=== PATIENT | male | born 1955 | race Caucasian/White ===

== ENCOUNTER 2016-08-10 08:55 | Emergency (ER) | payer MEDICAID ==
--- NOTE | 2016-08-10 09:28 | ED Physician Chart ---
Chief Complaint/HPI - Patient Information Date Seen:: 08/10/16 Time Seen:: 09:22 Chief Complaint:: abd p History of Present Illness:: pt w pain in low mid abd since last nt. has nad n/v x2 of nonbloody emesis. no fever. no constipation. pt has long standing hx of poor ctrl of bowel continence. says when he pees he often will poo involutarily. this is not new. pt low back pain is acting up also. he has had back sx 3x inpast for hernited disk. no weak/numb in legs. pt was on high dose MS cont and Dilaudid last time I saw him and had run out. today he says he is not on either of these meds since june and has to see a new dr to get these rxs filled so he has none at this time...he is on gabapentin and soma... no urinary changes Allergies:: Allergies Allergy/AdvReac Type Severity Reaction Status Date / Time No Known Allergies Allergy Verified 08/10/16 09:04 Vitals:: Vital Signs - 8 hr 08/10/16 08:55 Temp 97.8 F HR 87 RR 16 BP 147/85 O2 Sat % 97 Historian:: Patient Review of Systems - Review of Systems General/Constitutional: No fever, No chills, No weight loss, No weakness, No diaphoresis, No edema, No loss of appetite Skin: No skin lesions, No rash, No bruising Head: No headache, No light-headedness Eyes: No loss of vision, No pain, No diplopia ENT: No earache, No nasal drainage, No sore throat, No tinnitus Neck: No neck pain, No swelling, No thyromegaly, No stiffness, No mass noted Cardio Vascular: No chest pain, No palpitations, No PND, No orthopnea, No edema Pulmonary: No SOB, No cough, No sputum, No wheezing GI: Nausea, Vomiting, No diarrhea, Pain, No melena, No hematochezia, No constipation, No hematemesis G/U: No dysuria, No frequency, No hematuria Musculoskeletal: No bone or joint pain, No back pain, No muscle pain Endocrine: No polyuria, No polydipsia Psychiatric: No prior psych history, No depression, No anxiety, No suicidal ideation Hematopoietic: No bruising, No lymphadenopathy Allergic/Immuno: No urticaria, No angioedema Neurological: No syncope, No focal symptoms, No weakness, No paresthesia, No headache, No seizure, No dizziness, No confusion, No vertigo Past Medical History - Past Medical History Past Medical History: Other (colon ca sx yrs ago. (is still on chemo)) Social History: Non Smoker, No Alcohol Medication: Reviewed Family Medical History - Family Member Father History Unknown: Yes Mother History Unknown: Yes Ethnicity: Non- Living Status: Hx Family Congestive Heart Failure: Yes Hx Family Hypertension: Yes Physical Exam - Physical Examination General/Constitutional: Awake, Well-developed, well-nourished, Alert, No distress, GCS 15, Non-toxic appearing, Ambulatory Other Gen/Cons comments:: pt appears comfortable and in no distress. nrml str/sens in b legs. Head: Atraumatic Eyes: Lids, conjuctiva normal, PERRL, EOMI Skin: Nl inspection, No rash, No skin lesions, No ecchymosis, Well hydrated, No lymphadenopathy ENMT: External ears, nose nl, Nasal exam nl, Lips, teeth, gums nl Neck: Nontender, Full ROM w/o pain, No JVD, No nuchal rigidity, No bruit, No mass, No stridor Respiratory: Nl effort/Exclusion, Clear to Auscultation, No Wheeze/Rhonchi/Rales Cardio Vascular: RRR, No murmur, gallop, rubs, NL S1 S2 GI: No organomegaly, No hernia, Normal BS's, Nondistended, No mass/bruits, No McBurney tenderness Other GI comments:: abd seems nontndr but pt c/o pain in low mid abd. pos nabs. no rebound. large scar down central abd vertically. scar vertically down low back w vaguely tndr at l4/5/s1 region w no acute deformity. ok rom. : No CVA tenderness Extremities: No tenderness or effusion, Full ROM, normal strength in all extremities, No edema, Normal digits & nails Neuro/Psych: Alert/oriented, DTR's symmetric, Normal sensory exam, Normal motor strength, Judgement/insight normal, Mood normal, Normal gait, No focal deficits Misc: normal gait, Normal back, No paraspinal tenderness Labs/Radiology/EKG Results - Lab Results Results: Laboratory Tests 08/10/16 08/10/16 08/10/16 09:13 09:13 09:35 WBC 4.8 D RBC 4.35 Hgb 14.6 Hct 42.5 MCV 97.6 MCH 33.6 H MCHC Differential 34.4 RDW 12.3 Plt Count 196 MPV 6.6 Neutrophils % 62.7 Lymphocytes % 26.0 Monocytes % 9.6 Eosinophils % 1.3 Basophils % 0.4 Sodium Potassium Chloride Carbon Dioxide Anion Gap BUN Creatinine Est GFR ( Amer) Est GFR (Non-Af Amer) BUN/Creatinine Ratio Glucose Whole Bld Lactic Acid Calcium Total Bilirubin AST ALT Alkaline Phosphatase Total Protein Albumin Globulin Albumin/Globulin Ratio Lipase Urine Source CLEAN C Urine Color YELLOW Urine Clarity CLEAR Urine pH 6.0 Ur Specific [place] 1.020 Urine Protein NEGATIVE Urine Glucose (UA) NEGATIVE Urine Ketones NEGATIVE Urine Blood NEGATIVE Urine Nitrate NEGATIVE Urine Bilirubin NEGATIVE Urine Urobilinogen 0.2 Ur Leukocyte Esterase NEGATIVE Urine Opiates Screen NEGATIVE Ur Barbiturates Screen NEGATIVE Ur Phencyclidine Scrn NEGATIVE Amphetamines Screen NEGATIVE U Methamphetamines Scrn NEGATIVE U Benzodiazepines Scrn NEGATIVE U Cocaine Metab Screen NEGATIVE U Cannabinoids Screen NEGATIVE 08/10/16 08/10/16 09:35 09:35 WBC RBC Hgb Hct MCV MCH MCHC Differential RDW Plt Count MPV Neutrophils % Lymphocytes % Monocytes % Eosinophils % Basophils % Sodium 133 L Potassium 3.8 Chloride 105 Carbon Dioxide 23.7 Anion Gap 8.1 BUN 11 Creatinine 1.2 Est GFR ( Amer) > 60.0 Est GFR (Non-Af Amer) > 60.0 BUN/Creatinine Ratio 9.2 Glucose 110 H Whole Bld Lactic Acid 1.28 Calcium 9.7 Total Bilirubin 0.5 AST 18 ALT 13 Alkaline Phosphatase 63 Total Protein 6.8 Albumin 4.3 Globulin 2.5 Albumin/Globulin Ratio 1.7 Lipase 13 Urine Source Urine Color Urine Clarity Urine pH Ur Specific [place] Urine Protein Urine Glucose (UA) Urine Ketones Urine Blood Urine Nitrate Urine Bilirubin Urine Urobilinogen Ur Leukocyte Esterase Urine Opiates Screen Ur Barbiturates Screen Ur Phencyclidine Scrn Amphetamines Screen U Methamphetamines Scrn U Benzodiazepines Scrn U Cocaine Metab Screen U Cannabinoids Screen - Radiology Results Results: ct abd/p --- nad, prior sx changes ED Septic Shock - . Is Septic Shock (SBP<90, OR Lactate>4 mmol\L) present?: No - <6hrs of presentation: Vital Signs: Vital Signs - 8 hr 08/10/16 08:55 Temp 97.8 F HR 87 RR 16 BP 147/85 O2 Sat % 97 Reassessment (Disposition) - Reassessment Reassessment Condition:: Improved - Diagnosis Diagnosis:: 1 exacerbtion of chronic back pain - Patient Disposition Discharge/Transfer:: Home Condition at Disposition:: Improved ED Discharge Plan - Patient Disposition Admit/Discharge/Transfer: PT DISCHARGED HOME Condition at Disposition: Stable Instructions: Abdominal Pain, [id number] Additional Instructions: Dr. Polanco will see you in his office on Friday. Call his office first thing in the morning to schedule an appointment. Accepting Physician: Leonardo Polanco [Primary Care Provider] - 1-3 Days
[2016-08-10] MEDS ORDERED: Sodium Chloride 0.9% 1,000 ML IV ONE (09:30)
[2016-08-10] MEDS ORDERED: HYDROmorphone 1 mg/mL 1mL Syr IVP STA ×2 (09:32→11:32)
[2016-08-10] MEDS ORDERED: HYDROmorphone 1 mg/mL 1mL Syr ONE ×2 (09:43→11:40)
[2016-08-10 09:51] LABS: % BASOPHILS 0.4 % (0.0-2.0); % EOSINOPHILS 1.3 % (0.0-5.0); % MONOCYTES 9.6 % (2.0-10.0); % NEUTROPHILS 62.7 % (40.0-80.0); HEMATOCRIT 42.5 % (39.0-49.0); HEMOGLOBIN 14.6 gm/dL (13.2-17.3); MEAN CELL VOLUME 97.6 fl (80-99); MEAN CORPUSCULAR HEMOGLOBIN 33.6 pg (26.0-30.0); MEAN CORPUSCULAR HGB CONC 34.4 pg (28.0-36.0); MEAN PLATELET VOLUME 6.6 fl; PLATELET COUNT 196 Th/cmm (150-400); RED BLOOD COUNT 4.35 Mil/cmm (4.30-5.70); RED CELL DISTRIBUTION WIDTH 12.3 % (11.5-20.0); WHITE BLOOD COUNT 4.8 Th/cmm (4.8-10.8)
[2016-08-10 10:03] LABS: ALB/GLOB RATIO 1.7 (1.0-1.8); ALKALINE PHOSPHATASE 63 U/L (34-104); ANION GAP 8.1 (7.0-16.0); BILIRUBIN,TOTAL 0.5 mg/dL (0.3-1.0); BUN - UREA NITROGEN 11 mg/dL (7-25); BUN/CREATININE RATIO 9.2; CALCIUM SERUM 9.7 mg/dL (8.6-10.3); CARBON DIOXIDE 23.7 mEq/L (21.0-31.0); CHLORIDE 105 mEq/L (98-107); CREATININE - SERUM 1.2 mg/dL (0.7-1.3); GLUCOSE 110 mg/dL (70-105); LIPASE 13 U/L (11-82); POTASSIUM SERUM 3.8 mEq/L (3.5-5.1); SGOT 18 U/L (13-39); SGPT/ALT 13 U/L (7-52); SODIUM SERUM 133 mEq/L (136-145)
[2016-08-10 10:05] LABS: URINE BILIRUBIN NEGATIVE (NEGATIVE); URINE BLOOD NEGATIVE (NEGATIVE); URINE COLOR YELLOW; URINE GLUCOSE (UA) NEGATIVE (NEGATIVE); URINE KETONE NEGATIVE (NEGATIVE)
[2016-08-10 10:06] LABS: URINE PROTEIN NEGATIVE (NEGATIVE); URINE UROBILINOGEN 0.2 E.U./dL (0.2 - 1.0)
[2016-08-10 10:32] LABS: AMPHETAMINE URINE NEGATIVE (NEGATIVE); BARBITURATES URINE NEGATIVE (NEGATIVE)
--- NOTE | 2016-08-12 11:12 | Diagnostic Imaging Report ---
CT scan abdomen and pelvis without intravenous contrast HISTORY: Pain Total DLP equals 555 CTDI equals 11.3 Axial sections were obtained from the xiphoid process down to the pubic symphysis. The exam of the liver demonstrates an approximate 1.2 cm cyst within the right lobe. No other significant focal lesions. The spleen appears normal. No focal abnormality seen within the pancreas. The right kidney appears normal. There is an approximate 3 mm calculus within the medullary region of the left kidney. No hydronephrosis. This is unchanged from a prior study of 06/19/2016. Stool-filled large bowel with mild to moderate dilatation to the transverse colon along with surgical changes noted. The remainder of the pelvis demonstrates preservation of normal fat planes. No abnormal soft tissue masses or abnormal fluid collections. Degenerative changes seen to the spine. IMPRESSION: 1. Stool-filled large bowel mild dilatation through the transverse colon region. Surgical changes noted within this area. 2. 3 mm nonobstructing left renal calculus unchanged from a level 3016. 3. No other acute abnormalities
== END 2016-08-10 14:15 | disposition home or self-care (01) ==
LOC: ER 08:55
DX: R10.9 Unspecified abdominal pain (principal)
CPT/HCPCS: 99285; 96374; 96375; 96376; 74176; 36415; 83605; 80300; 85025; 81003; 83690; 80053; J2405; J1170; J1200; J7030

== ENCOUNTER 2016-09-16 09:02 | Emergency (ER) | payer MEDICAID ==
--- NOTE | 2016-09-16 09:16 | ED Physician Chart ---
Chief Complaint/HPI - Patient Information Date Seen:: 09/16/16 Time Seen:: 09:05 Chief Complaint:: back pain History of Present Illness:: 61-year-old male with history of chronic back pain takes large amounts of opiates, complains of acute, worsening, constant, aching, severe, 10 out of 10, radiating to the abdomen, low back pain 3 days. Denies any injury, nausea, vomiting, numbness, tingling, urinary incontinence, diarrhea, gross hematuria, gross blood in stool. Allergies:: Allergies Allergy/AdvReac Type Severity Reaction Status Date / Time No Known Allergies Allergy Verified 08/10/16 09:04 Historian:: Patient Review:: Nurse's Note Reviewed Review of Systems - Review of Systems Other: Complete system review otherwise unremarkable except as noted in HPI. Past Medical History - Past Medical History Past Medical History: Other (low back pain) Family History: None Social History: Non Smoker, No Alcohol, No Drug Use, Lives With Parents Surgical History: other Psychiatricy History: None Medication: Reviewed Family Medical History - Family Member Father History Unknown: Yes Ethnicity: Non- Mother History Unknown: Yes Ethnicity: Non- Living Status: Hx Family Congestive Heart Failure: Yes Hx Family Hypertension: Yes Physical Exam - Physical Examination Other:: INITIAL VITAL SIGNS: Reviewed by me GENERAL: Alert and interactive. No acute distress HEAD: Head is normocephalic and atraumatic EYES: EOMI. . No scleral icterus. No conjunctival injection ENT: Moist mucous membranes. NECK: Supple. No masses. Full range of motion RESPIRATORY: No tachypnea. Clear breath sounds bilaterally. No wheezing, rales, or rhonchi CV: Regular rate and rhythm. No murmurs, rubs, or gallops ABDOMEN: Soft, non-distended, non-tender. No guarding. No rebound. No masses. EXTREMITIES: No deformity. No cyanosis. No edema. SKIN: Warm and dry. No obvious rashes. NEUROLOGIC: Alert and oriented. Face is symmetric. Speech is normal. Moves all extremities equally. Motor and sensory distally intact. Labs/Radiology/EKG Results - Radiology Results Results: CT abdomen and pelvis without contrast per radiology Little change from prior exam is August 10, 2016 3 mm laceration left renal calculus Diastasis recti with protuberant contour of the anterior abdomen with peritoneal margin just the skin surface level of the umbilicus Mildly dilated stool filled sigmoid colon and rectum Surgical changes with the left abdomen Surgical degenerative changes stable. Discussed ED Septic Shock - . Is Septic Shock (SBP<90, OR Lactate>4 mmol\L) present?: No Reassessment (Disposition) - Reassessment Reassessment:: The patient's blood pressure was elevated (>120/80) but appears stable without evidence of hypertensive emergency or urgency. The patient was counseled about the risks hypertension urged to pursue outpatient monitoring and therapy within a week with her primary care physician. Patient was researched on the [employer] database. He receives large amounts of opiates and muscle relaxers from multiple providers. He does have one main provider which appears to be providing him with Soma and zolpidem. He has received morphine and hydromorphone from 3 different providers in the last 6 months. I discussed her policy about opioid prescriptions here at this emergency room and that we are not likely to provide prescriptions for chronic pain. He also appears to be in no acute distress and has a benign exam. Patient was given intramuscular Toradol. He was discharged with recommendation to follow-up with PCP in one to 2 days. We gave him return to ER precautions. The patient seemed to understand and agree with the plan. Reassessment Condition:: Improved - Diagnosis Diagnosis:: Low back pain, acute on chronic Elevated blood pressure without the diagnosis of hypertension - Aftercare/Follow up Instructions Aftercare/Follow-Up Instructions:: Counseled pt regarding lab results/diagnosis & need follow up, Refer to Discharge Instructions - Patient Disposition Discharge/Transfer:: Home Condition at Disposition:: Improved ED Discharge Plan - Patient Disposition Admit/Discharge/Transfer: PT DISCHARGED HOME Condition at Disposition: Improved Instructions: Chronic Pain
--- NOTE | 2016-09-16 10:45 | Diagnostic Imaging Report ---
CT scan abdomen and pelvis without intravenous contrast HISTORY: Pain Total DLP equals 544 CTDI equals 10.5 Axial sections were obtained from the xiphoid process down to the pubic symphysis. The exam of the liver demonstrates an approximate 1.2 cm hypodense lesion in the periphery of the right lobe unchanged from a prior exam of 08/10/2016 consistent with a cyst. The spleen appears normal. No focal abnormality seen within the pancreas. The adrenal glands appear normal. The right kidney is unremarkable. Again noted and unchanged is an approximate 3 mm calculus within the medullary region of the left kidney. No hydronephrosis. There is attenuation of the anterior abdominal wall with a convex contour with the peritoneal margin just beneath the skin surface at the level of the umbilicus. Associated diastases recti seen. Surgical changes noted in the left abdomen. The exam of the pelvis demonstrates mildly dilated stool-filled sigmoid colon and rectum. No abnormal masses or abnormal fluid collections are seen. Degenerative and surgical changes seen in the lumbar spine. IMPRESSION: 1. Little change from a prior exam of August 10, 2016 2. 3 mm nonobstructing left renal calculus 3. Diastases recti with a protuberant contour of the anterior abdomen with the peritoneal margin just beneath the skin surface at the level of the umbilicus. 4. Mildly dilated stool-filled sigmoid colon and rectum 5. Surgical changes within the left abdomen 6. Surgical degenerative changes within the spine 7. Stable hepatic cyst
== END 2016-09-16 10:49 | disposition home or self-care (01) ==
LOC: ER 09:02
DX: G89.29 Other chronic pain (principal); M54.5 Low back pain; R03.0 Elevated blood-pressure reading, without diagnosis of hypertension
CPT/HCPCS: 99284; 96372; 74176; J1885; Z7502

== ENCOUNTER 2016-09-17 20:07 | Emergency (ER) | payer MEDICAID ==
--- NOTE | 2016-09-17 20:09 | ED Physician Chart ---
Chief Complaint/HPI - Patient Information Date Seen:: 09/17/16 Time Seen:: 20:09 Chief Complaint:: abdominal pain History of Present Illness:: 61-year-old male with chronic pain syndrome seen last night for similar symptoms , complains of acute, constant, aching, severe, 10/10, nonradiating, umbilical and right sided lower abdominal pain that started last night. Allergies:: Allergies Allergy/AdvReac Type Severity Reaction Status Date / Time No Known Allergies Allergy Verified 08/10/16 09:04 Historian:: Patient Review:: Nurse's Note Reviewed Review of Systems - Review of Systems Other: Complete system review otherwise unremarkable except as noted in HPI. Past Medical History - Past Medical History Past Medical History: Other (chronic pain syndrome) Family History: None Social History: Non Smoker, No Alcohol, No Drug Use, Single Surgical History: None Psychiatricy History: None Medication: Reviewed Family Medical History - Family Member Father History Unknown: Yes Ethnicity: Non- Mother History Unknown: Yes Ethnicity: Non- Living Status: Hx Family Congestive Heart Failure: Yes Hx Family Hypertension: Yes Labs/Radiology/EKG Results - Radiology Results Results: Ultrasound abdomen prelim report per radiology NAD ED Septic Shock - . Is Septic Shock (SBP<90, OR Lactate>4 mmol\L) present?: No Reassessment (Disposition) - Reassessment Reassessment:: The patient's blood pressure was elevated (>120/80) but appears stable without evidence of hypertensive emergency or urgency. The patient was counseled about the risks hypertension urged to pursue outpatient monitoring and therapy within a week with her primary care physician. Patient was here last night for similar symptoms. There is some concern that he is seeking drugs. I did rerun a [facility] report which shows that he takes oral Dilaudid tablets on a regular basis. Typically gets refills from Dr. Brown and Dr. Pink. Also taking Soma and Ambien. Also appears to be taking morphine sulfate. Patient's vital signs would not indicate that he is in any severe pain. His clinical condition is he is ambulating and talking in full sentences without showing any signs of severe pain. We will administer Tylenol here in the ER. Labs were essentially unremarkable. Ultrasound demonstrated no acute abnormalities. Patient discharged. Follow up PCP and pain management in one to 2 days. Gave return to ER precautions. Patient understands and agrees with the plan. Reassessment Condition:: Improved - Diagnosis Diagnosis:: Abdominal pain Chronic pain syndrome Pre-hypertension - Aftercare/Follow up Instructions Aftercare/Follow-Up Instructions:: Counseled pt regarding lab results/diagnosis & need follow up, Refer to Discharge Instructions - Patient Disposition Discharge/Transfer:: Home Time:: 21:25 Condition at Disposition:: Improved ED Discharge Plan - Patient Disposition Admit/Discharge/Transfer: PT DISCHARGED HOME Instructions: Abdominal Pain, Chronic Back Pain
[2016-09-17] MEDS ORDERED: Acetaminophen 500 MG TAB ONE (20:19)
[2016-09-17 20:50] LABS: % BASOPHILS 0.6 % (0.0-2.0); % EOSINOPHILS 0.4 % (0.0-5.0); % LYMPHOCYTES 10.2 % (20.0-50.0); % MONOCYTES 7.4 % (2.0-10.0); % NEUTROPHILS 81.4 % (40.0-80.0); HEMATOCRIT 46.5 % (39.0-49.0); HEMOGLOBIN 15.7 gm/dL (13.2-17.3); MEAN CELL VOLUME 94.2 fl (80-99); MEAN CORPUSCULAR HEMOGLOBIN 31.8 pg (26.0-30.0); MEAN CORPUSCULAR HGB CONC 33.8 pg (28.0-36.0); NEUTROPHILE ABSOLUTE 7.1 Th/cmm (1.8-8.0); PLATELET COUNT 235 Th/cmm (150-400); RED BLOOD COUNT 4.93 Mil/cmm (4.30-5.70)
[2016-09-17 20:52] LABS: WHITE BLOOD COUNT 8.7 Th/cmm (4.8-10.8)
[2016-09-17 21:17] LABS: URINE BILIRUBIN NEGATIVE (NEGATIVE); URINE BLOOD NEGATIVE (NEGATIVE); URINE COLOR YELLOW; URINE GLUCOSE (UA) NEGATIVE (NEGATIVE); URINE KETONE NEGATIVE (NEGATIVE); URINE PH 5.5; URINE PROTEIN NEGATIVE (NEGATIVE); URINE UROBILINOGEN 0.2 E.U./dL (0.2 - 1.0)
[2016-09-17 21:18] LABS: URINE BACTERIA NONE SEEN /hpf (NONE SEEN); URINE EPITHELIAL CELLS NONE SEEN /lpf (FEW); URINE RBC NONE SEEN /hpf (0-5); URINE WBC NONE SEEN /hpf (0-5)
--- NOTE | 2016-09-18 11:19 | Diagnostic Imaging Report ---
Ultrasound abdomen limited History: Abdominal pain Comparison: CT abdomen and pelvis on 09/16/2014. Technique sonography right upper quadrant was performed in multiple planes. Findings: Exam is limited as patient was uncooperative during the exam. The liver demonstrates normal echogenicity and measures 16.5 cm. The liver margins are not well-defined, however, no focal lesions identified. No evidence of gallstones. The gallbladder wall measures 2.7 mm. The common bile duct measures 2.5 mm. Evaluation of the pancreas is limited due to bowel gas. Limited evaluation the right kidney demonstrates no evidence of hydronephrosis or focal lesions. No focal abnormalities identified within the right lower quadrant in the area of pain. IMPRESSION: Limited exam as patient was uncooperative. No evidence of gallstones. No evidence of hydronephrosis of the right kidney. Borderline prominent liver. No focal abnormalities identified in the right lower quadrant. If indicated short-term follow-up CT may also be obtained.
== END 2016-09-17 21:25 | disposition home or self-care (01) ==
LOC: ER 20:07
DX: R10.31 Right lower quadrant pain (principal); G89.4 Chronic pain syndrome
CPT/HCPCS: 36415-UA; 76705-TC; 81001-TC; 83690-TC; 85025-TC; Z7610

== ENCOUNTER 2017-08-17 18:43 | Emergency (ER) | payer MEDICAID ==
--- NOTE | 2017-08-17 19:14 | ED Physician Chart ---
ED Chief Complaint/HPI - Patient Information Date Seen:: 08/17/17 Time Seen:: 19:05 Chief Complaint:: Right groin pain, rectal pain History of Present Illness:: 62 yo male had colorectal cancer which was operated but not removed due to its closeness to the prostate 2 months ago. The patient was awaiting for approval for additional surgery to remove the cancer. The patient did not receive chemo or radiation therapy. Since the operation, the patient had intermittent pain in low abdomen, right groin, and rectal area. The patient took oxycodone 15mg bid which could not be refilled until 08/21/17, dilaudid 8mg bid, soma and gabapentin. Dilaudid was prescribed by oncologist. Oxycodone was prescribed by the surgeon. His PCP prescbribed the rest medications. He ran out medications one week ago. During past one day, the pain became worse without relief. He vomited once but denied any fever. Allergies:: Allergies Allergy/AdvReac Type Severity Reaction Status Date / Time No Known Allergies Allergy Verified 08/17/17 19:03 ED Review of Systems - Review of Systems General/Constitutional: No fever Skin: No skin lesions Head: Headache, Light headed Eyes: No pain ENT: No earache Neck: No neck pain Cardio Vascular: No chest pain Pulmonary: No SOB GI: Vomiting, Pain Musculoskeletal: Back pain ED Past Medical History - Past Medical History Past Medical History: Other (colon cancer) Social History: Non Smoker, No Alcohol, No Drug Use Surgical History: other (laparotomy) Family Medical History - Family Member Father History Unknown: Yes Ethnicity: Non- Mother History Unknown: Yes Ethnicity: Non- Living Status: Hx Family Congestive Heart Failure: Yes Hx Family Hypertension: Yes ED Physical Exam - Physical Examination General/Constitutional: Awake Head: Atraumatic Eyes: PERRL Skin: No skin lesions ENMT: Nasal exam nl Neck: No nuchal rigidity Respiratory: Clear to Auscultation, No Wheeze/Rhonchi/Rales Cardio Vascular: RRR, No murmur, gallop, rubs, NL S1 S2 Other GI comments:: abdominal midline incision wound healed. LLQ colostomy intact. Hypoactive bowel sound Extremities: normal strength in all extremities Neuro/Psych: No focal deficits ED Labs/Radiology/EKG Results - Radiology Results Results: CT abdomen/pelvis: Left renal calculus 3mm no obstruction, constipation, colostomy open ED Assessment - Assessment General Assessment: UTI Colorectal cancer Normocytic anemia Hyponatremia Hypokalemia Urine drug screen positive for Benzodiazepine and THC Assessment/Comments:: CBC, CMP, UA, urine drug screen CT abdomen/pelvis Zofran KCL 40mEq po NS 1L iv bolus Rocephin D/c home Ciprofloxacin 500mg bid x 7 days F/u PCP or return to ER if symptoms worsen ED Septic Shock - . Is Septic Shock (SBP<90, OR Lactate>4 mmol\L) present?: No ED Reassessment (Disposition) - Reassessment Reassessment Condition:: Improved - Patient Disposition Discharge/Transfer:: Home ED Discharge Plan - Patient Disposition Admit/Discharge/Transfer: PT DISCHARGED HOME Condition at Disposition: Improved Prescriptions: Ciprofloxacin [Cipro] 500 mg PO BID #14 tab Instructions: Urinary Tract Infection, [id number] Additional Instructions: Take medication as prescribed. Follow up with your primary care provider tomorrow. Return to ER immediately if symptoms worsen.
[2017-08-17 19:36] LABS: % BASOPHILS 0.3 % (0.0-2.0); % EOSINOPHILS 0.7 % (0.0-5.0); % LYMPHOCYTES 24.9 % (20.0-50.0); % NEUTROPHILS 63.1 % (40.0-80.0); LYMPHOCYTE ABSOLUTE 1.4 Th/cmm (1.5-3.0); MEAN CORPUSCULAR HEMOGLOBIN 26.4 pg (26.0-30.0); MEAN CORPUSCULAR HGB CONC 32.6 pg (28.0-36.0); MEAN PLATELET VOLUME 6.1 fl; MONOCYTE ABSOLUTE 0.6 Th/cmm (0.3-1.0); NEUTROPHILE ABSOLUTE 3.8 Th/cmm (1.8-8.0); RED CELL DISTRIBUTION WIDTH 14.6 % (11.5-20.0)
[2017-08-17] MEDS ORDERED: Morphine Sulfate 2 mg/mL 1mL Syr IVP STA ×2 (19:36→21:40)
[2017-08-17 19:37] LABS: HEMATOCRIT 34.8 % (41.0-60); HEMOGLOBIN 11.3 gm/dL (12-16); PLATELET COUNT 317 Th/cmm (150-400); WHITE BLOOD COUNT 5.8 Th/cmm (4.8-10.8)
[2017-08-17] MEDS ORDERED: Morphine Sulfate 2 mg/mL 1mL Syr ONE ×2 (19:51→21:50)
[2017-08-17 19:52] LABS: URINE MICROSCOPIC INDICATED? YES; URINE SOURCE RANDOM
[2017-08-17 19:53] LABS: ALB/GLOB RATIO 1.9 (1.0-1.8); ALBUMIN 4.6 gm/dL (4.2-5.5); ALKALINE PHOSPHATASE 67 U/L (34-104); ANION GAP 14.3 (7.0-16.0); BILIRUBIN,TOTAL 0.3 mg/dL (0.3-1.0); BUN - UREA NITROGEN 9 mg/dL (7-25); CALCIUM SERUM 9.4 mg/dL (8.6-10.3); CARBON DIOXIDE 23.5 mEq/L (21.0-31.0); CHLORIDE 99 mEq/L (98-107); CREATININE - SERUM 1.1 mg/dL (0.7-1.3); GFR AFRICAN-AMERICAN > 60.0 ml/min (>90); GFR NON AFRICAN-AMERICAN > 60.0 ml/min; GLUCOSE 99 mg/dL (70-105); SGOT 16 U/L (13-39); SGPT/ALT 14 U/L (7-52); SODIUM SERUM 134 mEq/L (136-145)
[2017-08-17 19:57] LABS: URINE BILIRUBIN NEGATIVE (NEGATIVE); URINE BLOOD NEGATIVE (NEGATIVE); URINE GLUCOSE (UA) NEGATIVE (NEGATIVE); URINE KETONE NEGATIVE (NEGATIVE); URINE LEUKOCYTE ESTERASE SMALL (NEGATIVE); URINE NITRATE NEGATIVE (NEGATIVE); URINE PROTEIN NEGATIVE (NEGATIVE); URINE UROBILINOGEN 0.2 E.U./dL (0.2 - 1.0)
[2017-08-17 19:59] LABS: POTASSIUM SERUM 2.8 mEq/L (3.5-5.1); URINE CLARITY CLEAR (CLEAR); URINE COLOR STRAW
[2017-08-17 20:04] LABS: URINE BACTERIA NONE SEEN /hpf (NONE SEEN); URINE EPITHELIAL CELLS NONE SEEN /lpf (FEW); URINE RBC NONE SEEN /hpf (0-5); URINE WBC 0-2 /hpf (0-5)
[2017-08-17] MEDS ORDERED: Sodium Chloride 0.9% 1,000 ML IV ONE (20:11)
[2017-08-17] MEDS ORDERED: Potassium Chloride 20 mEq ER Tab PO ONE ×2 (20:11→20:18)
[2017-08-17 20:30] LABS: AMPHETAMINE URINE NEGATIVE (NEGATIVE); BARBITURATES URINE NEGATIVE (NEGATIVE); BENZODIAZEPINES QUAL URINE POSITIVE (NEGATIVE); COCAINE METABOLITE QUAL URINE NEGATIVE (NEGATIVE); METHADONE URINE NEGATIVE (NEGATIVE); METHAMPHETAMINES QUAL URINE NEGATIVE (NEGATIVE); OPIATES (MORPHINE) QUAL. URINE NEGATIVE (NEGATIVE); PHENCYCLIDINE (PCP) URINE NEGATIVE (NEGATIVE); TRICYCLICS (TCA) QUAL. URINE NEGATIVE (NEGATIVE)
[2017-08-17 20:31] LABS: CANNABINOID THC POSITIVE (NEGATIVE)
[2017-08-17] MEDS ORDERED: cefTRIAXone 1 GM in Sodium Chloride 0.9% 50 ML IV ONE (21:11)
[2017-08-17 23:01] LABS: AMYLASE SERUM 34 U/L (29-103); LIPASE 19 U/L (11-82)
--- NOTE | 2017-08-18 08:07 | Diagnostic Imaging Report ---
Exam: CT examination abdomen pelvis HISTORY: Abdominal pain. Total DLP equals 629 CTDI equals 12.3 Findings: Multiple contiguous thin section of the abdomen pelvis obtained from lower thorax to pubic symphysis without administration intravenous or oral contrast material. The study correlated with the prior exam of the 09/16/2016. The study demonstrates normal aeration of lung parenchyma the bases Again noted small cyst in the right lobe of liver. The spleen is intact. The pancreas is normal. Large amount of fecal content appreciated. The adrenal glands are normal. The gallbladder is intact. The kidneys demonstrate no evidence of obstructive uropathy. Again noted nonobstructing small calculus left kidney. There is evidence for left lower quadrant the ostomy opening. Subcutaneous soft tissue swelling is noted mid abdomen. The urinary bladder is intact. Large amount of fecal content is noted in transverse colon. Multiple metallic sutures are noted in lower abdomen suggestive previous surgery. Degenerative changes lumbar spine appreciated. IMPRESSION: 1. Unchanged appearance of the 3 mm nonsmall nonobstructing left renal calculus 2. Small right lobe of liver cyst. 3. Large amount of fecal content in the transverse: 4. Left lower quadrant colostomy opening 5. Degenerative changes lumbar spine
== END 2017-08-17 23:30 | disposition home or self-care (01) ==
LOC: ER 18:43
DX: R10.31 Right lower quadrant pain (principal); K62.89 Other specified diseases of anus and rectum
CPT/HCPCS: 99285; 96365; 96375; 96376; 93005; 74176; 36415; 82378; 80307; 85025; 81001; 82150; 83690; 80053; J2270 ×2; J2405; J0696; J7030

== ENCOUNTER 2017-09-24 12:26 | Emergency (ER) | payer MEDICAID ==
[2017-09-24] MEDS ORDERED: Morphine Sulfate 2 mg/mL 1mL Syr IM STA (12:58)
--- NOTE | 2017-09-24 13:04 | ED Physician Chart ---
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:: Allergies Allergy/AdvReac Type Severity Reaction Status Date / Time No Known Allergies Allergy Verified 08/17/17 19:03 Vitals:: Vital Signs - 8 hr 09/24/17 12:36 Temp 98.9 F HR 91 RR 18 BP 135/80 O2 Sat % 99 Historian:: Patient Review:: Nurse's Note Reviewed ED Review of Systems - Review of Systems General/Constitutional: No fever, No chills, No weight loss, No weakness, No diaphoresis, No edema, No loss of appetite Skin: No skin lesions, No rash, No bruising Head: No headache, No light-headedness Eyes: No loss of vision, No pain, No diplopia ENT: No earache, No nasal drainage, No sore throat, No tinnitus Neck: No neck pain, No swelling, No thyromegaly, No stiffness, No mass noted Cardio Vascular: No chest pain, No palpitations, No PND, No orthopnea, No edema Pulmonary: No SOB, No cough, No sputum, No wheezing GI: No nausea, No vomiting, No diarrhea, No pain, No melena, No hematochezia, No constipation, No hematemesis G/U: No dysuria, No frequency, No hematuria, No nacturia Musculoskeletal: Bone or joint pain, Back pain, Muscle pain Endocrine: No polyuria, No polydipsia Psychiatric: No prior psych history, No depression, No anxiety, No suicidal ideation, No homicidal ideation, No auditory hallucination, No visual hallucination Hematopoietic: No bruising, No lymphadenopathy Allergic/Immuno: No urticaria, No angioedema Neurological: No syncope, No focal symptoms, No weakness, No paresthesia, No headache, No seizure, No dizziness, No confusion, No vertigo ED Past Medical History - Past Medical History Obtainable: Yes Past Medical History: Other (Colon Cancer) Family History: Cancer Social History: Non Smoker, No Alcohol, No Drug Use, Single Surgical History: other (Colostomy) Psychiatricy History: None Medication: Reviewed Family Medical History - Family Member Father History Unknown: Yes Ethnicity: Non- Mother History Unknown: Yes Ethnicity: Non- Living Status: Hx Family Cancer: No Hx Family Coronary Artery Disease: No Hx Family Congestive Heart Failure: No Hx Family Hypertension: No Hx Family Dementia: No Hx Family AIDS: No Hx Family HIV: No Hx Family COPD: No Hx Family Hepatitis: No Hx Family Psychiatric Problems: No ED Physical Exam - Physical Examination General/Constitutional: Awake, Well-developed, well-nourished, Alert, No distress, GCS 15, Non-toxic appearing, Ambulatory Head: Atraumatic Eyes: Lids, conjuctiva normal, PERRL, EOMI Skin: Nl inspection, No rash, No skin lesions, No ecchymosis, Well hydrated, No lymphadenopathy ENMT: External ears, nose nl, TM canals nl, Nasal exam nl, Lips, teeth, gums nl , Oropharynx nl, Tonsils nl Neck: Nontender, Full ROM w/o pain, No JVD, No nuchal rigidity, No bruit, No mass, No stridor Other Neck comments:: supple; no meningeal signs; no cervical tenderness; no bruits Respiratory: Nl effort/Exclusion, Clear to Auscultation, No Wheeze/Rhonchi/Rales Cardio Vascular: RRR, No murmur, gallop, rubs, NL S1 S2, Carotid/Femoral/Distal pulses equal bilaterally GI: No tenderness/rebounding/guarding, No organomegaly, No hernia, Normal BS's, Nondistended, No mass/bruits, No McBurney tenderness, Rectum exam nl Other GI comments:: no pulsatile masses; + Colostomy Bag/Site; no tenderness; no bleeding : No CVA tenderness Extremities: No tenderness or effusion, Full ROM, normal strength in all extremities, No edema, Normal digits & nails Neuro/Psych: Alert/oriented, DTR's symmetric, Normal sensory exam, Normal motor strength, Judgement/insight normal, Mood normal, Normal gait, No focal deficits Misc: Normal back, No paraspinal tenderness ED Septic Shock - . Is Septic Shock (SBP<90, OR Lactate>4 mmol\L) present?: No - <6hrs of presentation: Vital Signs: Vital Signs - 8 hr 09/24/17 12:36 Temp 98.9 F HR 91 RR 18 BP 135/80 O2 Sat % 99 ED Reassessment (Disposition) - Reassessment Reassessment:: pt tolerated po fluids well in ER; pt is asymptomatic upon discharge Reassessment Condition:: Improved - Diagnosis Diagnosis:: L-S Strain; Colon Cancer; Sprains and Strains; Back Pain; S/P Colon CA Surgery; Abdominal Pain-resolved; MS Back Pain - Aftercare/Follow up Instructions Aftercare/Follow-Up Instructions:: Counseled pt regarding lab results/diagnosis & need follow up, Refer to Discharge Instructions, Counseled pt & family regarding lab results/diagnosis & need follow up - Patient Disposition Discharge/Transfer:: Home Condition at Disposition:: Stable, Improved (RTER prn if existing s/s reoccur and/or get worse and/or any other new s/s occur; ACIs given for all above Dx; Refer to GI Specialist/Oncologist/Dictating Machine Typist/Spinal Specialist CHRISTIANO; F/U with PMD in one day or prn; RTER prn if concerned) ED Discharge Plan - Patient Disposition Admit/Discharge/Transfer: PT DISCHARGED HOME Condition at Disposition: Stable Instructions: Abdominal Pain
[2017-09-24] MEDS ORDERED: Morphine Sulfate 2 mg/mL 1mL Syr ONE (13:05)
== END 2017-09-24 14:06 | disposition home or self-care (01) ==
LOC: ER 12:26
DX: S33.9XXA Sprain of unspecified parts of lumbar spine and pelvis, initial encounter (principal); X58.XXXA Exposure to other specified factors, initial encounter; Y93.89 Activity, other specified; Y92.89 Other specified places as the place of occurrence of the external cause; Y99.8 Other external cause status; Z85.038 Personal history of other malignant neoplasm of large intestine
CPT/HCPCS: 99283; 96372; J2270; Z7502